=== PATIENT | male | born 1960 | race Caucasian/White ===

== ENCOUNTER 2020-04-18 23:56 | Emergency (ER) | payer MEDICARE, MEDICAID, OTHER, SELFPAY ==
[2020-04-19 00:30] VITALS: BP 125/89; PULSE 81; RESP 22; TEMP 36.7; O2SAT 98
--- NOTE | 2020-04-19 05:09 | PC.NURSE ---
original documentation done under yuki mike name. i undid and correctly charted
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
== END 2020-04-19 03:00 | disposition home or self-care (01) ==
PROVIDERS: Emergency Provider General Practice
DX: T74.21XA Adult sexual abuse, confirmed, initial encounter (principal); Z21 Asymptomatic human immunodeficiency virus [HIV] infection status; Y07.59 Other non-family member, perpetrator of maltreatment and neglect
CPT/HCPCS: 99285

== ENCOUNTER 2020-04-22 00:19 | Emergency (ER) | payer MEDICARE, MEDICAID, SELFPAY ==
--- NOTE | ~2020-04-22 | XR_ITS ---
XR chest 2V DATE: 04/22/2020 00:53 INDICATION: Chest pain and chest tightness TECHNIQUE: PA and lateral views COMPARISON: None FINDINGS: Status post sternotomy. Coronary artery stent. Left intrathoracic device. Normal heart size. No hilar or mediastinal enlargement. Reticular changes in the lung bases may be due to interstitial pneumonitis or fibrosis; otherwise no pulmonary infiltrate or consolidation, pleural effusion or pulmonary vascular congestion or pneumotho rax. Status post cholecystectomy. IMPRESSION: Status post sternotomy Coronary artery stent Reticular changes in the lung bases which may be due to interstitial pneumonitis or fibrosis Reviewed, dictated and finalized at location A. IMPRESSION: Status post sternotomy Coronary artery stent Reticular changes in the lung bases which may be due to interstitial pneumoniti s or fibrosis
[2020-04-22 00:16] VITALS: BP 124/87; PULSE 122; RESP 25; TEMP 36.7; O2SAT 94
--- NOTE | 2020-04-22 00:26 | ECG_ITS ---
Measurements Intervals [place] Rate: 118 P: 71 VA: 137 QRS: 32 QRSD: 100 T: 64 QT: 437 QTc: 613 Interpretive Statements SINUS TACHYCARDIA NONSPECIFIC ST & T-WAVE ABNORMALITY- LAT/HIGH LAT LEADS BASELINE ARTIFACT- II, III ABNORMAL ECG Electronically Signed On 04-22-2020 8:08:49 CDT by Cruzito Haile D.O.
[2020-04-22 00:40] VITALS: PULSE 118; O2SAT 95
[2020-04-22 00:55] LABS: Basophils Absolute Auto 0.1 K/mm3 (0.0-0.1); Basophils Percent Auto 0.6 % (0.2-1.2); Eosinophils Percent Auto 0.3 % (0-4.4); Hematocrit 37.4 % (42.0-52.0); Hemoglobin 13.2 g/dL (14.0-18.0); Immature Granulocyte Absolute 0.05 K/mm3 (0.00-0.031); Immature Granulocyte Percent A 0.5 % (0-0.5); Lymphocytes Absolute Auto 3.56 K/mm3 (0.9-3.2); Lymphocytes Percent Auto 37.5 % (18.3-44.2); Mean Corpuscular HGB Conc 35.3 g/dl (32-36); Mean Corpuscular Hemoglobin 32.1 pg (26-34); Mean Platelet Volume 9.6 fl (7.4-10.4); Monocytes Absolute Auto 0.9 K/mm3 (0.1-0.6); Monocytes Percent Auto 9.2 % (2.6-8.5); Neutrophils Absolute Auto 4.9 K/mm3 (1.3-6.7); Neutrophils Percent Auto 51.9 % (45.5-73.1); Platelet Count Result 230 k/mm3 (150-375); Red Blood Count 4.11 M/mm3 (4.6-6.20); Red Cell Distribution Width 11.9 % (11.5-14.5); White Blood Count 9.5 K/mm3 (4.5-10.0)
[2020-04-22 01:05] LABS: INR 1.1; Prothrombin Time 13.5 Seconds (11.1-14.7)
[2020-04-22 01:06] LABS: Partial Thromboplastin Time 26.2 SECONDS (22.3-36.8)
[2020-04-22 01:08] LABS: Anion Gap 12 mmol/L (8-16); Blood Urea Nitrogen 29 mg/dL (9-20); Calcium 9.2 mg/dL (8.4-10.2); Carbon Dioxide 23 mmol/L (22-30); Chloride 108 mmol/L (98-107); Estimated CRCL calculation 65 ml/min; Estimated Glomerular Filt Rate > 60; Glucose 191 mg/dL (75-110); Potassium 3.7 mmol/L (3.4-5.0); Sodium 143 mmol/L (137-145)
[2020-04-22 01:20] LABS: Troponin I 0.016 ng/mL (0.000-0.034)
[2020-04-22] MEDS: ASPIRIN 81 MG CHEWABLE TABLET 324 MG PO (01:26)
[2020-04-22 01:30] VITALS: BP 136/72; PULSE 116; RESP 21; O2SAT 96
[2020-04-22] MEDS: SODIUM CHLORIDE 0.9% IV 1,000 ML 999 ML IV CONT (01:30)
[2020-04-22 03:00] VITALS: BP 143/75; PULSE 110; RESP 25; O2SAT 99
--- NOTE | 2020-04-22 03:09 | ED.CHESTPAIN ---
HPI - Chest Pain General Chief Complaint: Chest Pain Stated Complaint: CP Time Seen by Provider: 04/22/20 00:56 History of Present Illness HPI narrative: Patient is a 59-year-old male who presents the ER with chest pain. Reports around 5:30 PM he was starting to libertarian with his friend. He had 6 jacking Cokes and then snorted 1.5 g of cocaine. He developed central chest pain shortly after. Lasted for about 1/2-hour. He still having some slight discomfort. Has history of MIs as well as a CABG in the past. No aggravating alleviating factors outside of the drug use. No GI symptoms. Related Data Home Medications Medication Instructions Recorded Confirmed allopurinol 04/19/20 carvedilol 04/19/20 imipramine HCl 04/19/20 Allergies Allergy/AdvReac Type Severity Reaction Status Date / Time Penicillins Allergy Anaphylactic Verified 04/19/20 03:38 Shock Review of Systems Review of Systems: All systems reviewed & are unremarkable except as noted in HPI and below Constitutional: Constitutional: Denies chills, Denies fever(s) and Denies weakness ENT: Denies nasal congestion and Denies sore throat Cardiovascular: Cardiovascular: Reports chest pain, Reports rapid heart rate and Denies radiating jaw, neck or arm pain Respiratory: Respiratory: Denies cough and Denies dyspnea Gastrointestinal: Gastrointestinal: Denies abdominal pain, Denies nausea and Denies vomiting Psychiatric: Psychiatric: Reports anxiety PMFSH Past Medical History Medical History (Updated 04/22/20 @ 04:04 by Wilber Mcgrath MD) Atrial fibrillation Coronary artery disease HIV (human immunodeficiency virus infection) Hyperlipidemia Hypertension Rectal cancer Surgical History Surgical History (Updated 04/22/20 @ 03:11 by Wilber Mcgrath MD) Hx of CABG Social History Social History (Updated 04/22/20 @ 03:11 by Wilber Mcgrath MD) Alcohol intake: current Substance use type: crack/cocaine Gender identity (if verbalized by the patient): Male Exam Narrative: Exam Narrative: GENERAL: Anxious-appearing, well-nourished, and in no acute distress. HEAD: Normocephalic, atraumatic. EYES: PERRLA and EOMI. CHEST: Clear to auscultation. No respiratory distress. HEART: Tachycardic and regular. Normal peripheral pulses. ABDOMEN: Soft, nontender, nondistended. EXTREMITIES: Normal range of motion. No edema. SKIN: Warm, dry, no rash. NEURO: Alert and oriented x3. PSYCH: Slightly anxious with difficulty sitting still likely related to cocaine use. Normal thought process. Course Course Emergency Course: Troponins flat 1 hours after onset of pain. Patient is coming down off cocaine is no longer jittery. Calm and cooperative. CP free. D/c. Vital Signs Vital signs: Vital Signs Temperature 98.1 F 04/22/20 00:16 Pulse Rate 122 H 04/22/20 00:16 Respiratory Rate 25 H 04/22/20 00:16 Blood Pressure 124/87 04/22/20 00:16 Pulse Oximetry 94 04/22/20 00:16 Temperature 98.1 F 04/22/20 00:16 Pulse Rate 110 H 04/22/20 03:00 Respiratory Rate 25 H 04/22/20 03:00 Blood Pressure 143/75 H 04/22/20 03:00 Pulse Oximetry 99 04/22/20 03:00 MDM - Chest Pain Lab Data Result diagrams: 04/22/20 00:49 04/22/20 00:49 Labs: Lab Results 04/22/20 04/22/20 04/22/20 Range/Units 00:49 00:49 00:49 WBC 9.5 (4.5-10.0) K/mm3 RBC 4.11 L (4.6-6.20) M/mm3 Hgb 13.2 L (14.0-18.0) g/dL Hct 37.4 L (42.0-52.0) % MCV 91.0 (80-100) fl MCH 32.1 (26-34) pg MCHC 35.3 (32-36) g/dl RDW 11.9 (11.5-14.5) % Plt Count 230 (150-375) k/mm3 MPV 9.6 (7.4-10.4) fl Immature Gran % (Auto) 0.5 (0-0.5) % Neut % (Auto) 51.9 (45.5-73.1) % Lymph % (Auto) 37.5 (18.3-44.2) % Love % (Auto) 9.2 H (2.6-8.5) % Eos % (Auto) 0.3 (0-4.4) % Baso % (Auto) 0.6 (0.2-1.2) % Lymph # (Auto) 3.56 H (0.9-3.2) K/mm3 Love # (Auto) 0.9 H (0.1
[2020-04-22 03:52] LABS: Troponin I 0.017 ng/mL (0.000-0.034)
--- NOTE | 2020-04-22 04:17 | PC.NURSE ---
Per EDP Alcides, patient can be discharged at 0600 due to patient sobering up and coming down from cocaine use.
[2020-04-22 04:47] VITALS: BP 129/67; PULSE 108; RESP 16; O2SAT 99
[2020-04-22 05:44] VITALS: BP 135/75; PULSE 107; RESP 16; TEMP 36.6; O2SAT 100
== END 2020-04-22 05:46 | disposition home or self-care (01) ==
PROVIDERS: Emergency Provider Emergency Medicine
DX: R07.9 Chest pain, unspecified (principal); F14.10 Cocaine abuse, uncomplicated; I48.91 Unspecified atrial fibrillation; I25.10 Atherosclerotic heart disease of native coronary artery without angina pectoris; Z21 Asymptomatic human immunodeficiency virus [HIV] infection status; E78.5 Hyperlipidemia, unspecified; I10 Essential (primary) hypertension; I25.2 Old myocardial infarction
CPT/HCPCS: 36415; 71046; 80048; 84484; 85025; 85610; 85730; 93005; 96360; 99284; A9270; J7030

== ENCOUNTER 2020-04-23 02:34 | Emergency (ER) | payer MEDICARE, MEDICAID, SELFPAY ==
--- NOTE | ~2020-04-23 | XR_ITS ---
XR chest 2V DATE: 04/23/2020 03:11 INDICATION: Chest pain, chest tightness TECHNIQUE: AP and lateral views COMPARISON: 04/22/2028 PA and lateral chest FINDINGS: Status post sternotomy. Coronary artery stent. Left intrathoracic device is again noted. Heart size is within normal range. No pulmonary vascular congestion. No pleural effusion is evident. Reticular changes are suggested at the lung bases which may be due to minimal interstitial infiltrate , atelectasis or fibrotic change. IMPRESSION: No significant change since 04/22/2020 Reviewed, dictated and finalized at location A.
[2020-04-23 02:34] VITALS: PULSE 109; RESP 14; TEMP 36.7; O2SAT 95
--- NOTE | 2020-04-23 02:37 | ECG_ITS ---
Measurements Intervals [place] Rate: 104 P: 78 [place]: 120 QRS: 55 QRSD: 91 T: 78 QT: 345 QTc: 456 Interpretive Statements SINUS TACHYCARDIA CANNOT RULE OUT SEPTAL INFARCT, AGE INDETERMINATE BORDERLINE T WAVE ABNORMALITY- HIGH LATERAL LEADS ABNORMAL ECG Electronically Signed On 04-23-2020 6:51:35 CDT by Cruzito Haile D.O.
[2020-04-23 02:50] LABS: Basophils Absolute Auto 0.1 K/mm3 (0.0-0.1); Basophils Percent Auto 0.6 % (0.2-1.2); Eosinophils Absolute Auto 0.1 K/mm3 (0-0.3); Eosinophils Percent Auto 1.6 % (0-4.4); Hemoglobin 12.2 g/dL (14.0-18.0); Immature Granulocyte Absolute 0.04 K/mm3 (0.00-0.031); Immature Granulocyte Percent A 0.5 % (0-0.5); Lymphocytes Absolute Auto 2.99 K/mm3 (0.9-3.2); Lymphocytes Percent Auto 36.5 % (18.3-44.2); Mean Corpuscular HGB Conc 34.9 g/dl (32-36); Mean Corpuscular Hemoglobin 32.4 pg (26-34); Mean Corpuscular Volume 92.8 fl (80-100); Mean Platelet Volume 9.1 fl (7.4-10.4); Monocytes Absolute Auto 0.7 K/mm3 (0.1-0.6); Monocytes Percent Auto 8.3 % (2.6-8.5); Neutrophils Absolute Auto 4.3 K/mm3 (1.3-6.7); Neutrophils Percent Auto 52.5 % (45.5-73.1); Platelet Count Result 210 k/mm3 (150-375); Red Blood Count 3.77 M/mm3 (4.6-6.20); Red Cell Distribution Width 12.4 % (11.5-14.5); White Blood Count 8.2 K/mm3 (4.5-10.0)
[2020-04-23 02:57] VITALS: PULSE 101
[2020-04-23 02:59] LABS: Prothrombin Time 12.6 Seconds (11.1-14.7)
[2020-04-23 03:00] LABS: Partial Thromboplastin Time 26.5 SECONDS (22.3-36.8)
[2020-04-23 03:04] LABS: Anion Gap 8 mmol/L (8-16); Blood Urea Nitrogen 18 mg/dL (9-20); Carbon Dioxide 28 mmol/L (22-30); Chloride 105 mmol/L (98-107); Estimated CRCL calculation 76 ml/min; Estimated Glomerular Filt Rate > 60; Glucose 244 mg/dL (75-110); Potassium 3.6 mmol/L (3.4-5.0); Sodium 141 mmol/L (137-145)
[2020-04-23 03:16] LABS: Troponin I < 0.012 ng/mL (0.000-0.034)
--- NOTE | 2020-04-23 04:10 | ED.CHESTPAIN ---
HPI - Chest Pain General Chief Complaint: Chest Pain Stated Complaint: CP Time Seen by Provider: 04/23/20 02:35 History of Present Illness HPI narrative: Patient is a 59-year-old male who presents the ER with complaint of inability to sleep. Patient was seen in the ER last night for chest pain after drinking alcohol and using cocaine. Patient reports after leaving the ER he met up with a friend and went to a local hotel. There they used meth for several hours. They injected it as well as snorted it. Reports this afternoon he started having some discomfort in his left posterior shoulder and posterior neck. Did not think much of it. Then tonight while he was in the lobby of his hotel the medical appointment clerk there he said she did not think he looked well and called EMS and he was transferred here. Reports he has been a unable to sleep would like help with this. No complaints of chest pain or shortness of breath. Reports he has mild ache in his left posterior shoulder. Has not tried any additional medications. Related Data Home Medications Medication Instructions Recorded Confirmed allopurinol 04/19/20 carvedilol 04/19/20 imipramine HCl 04/19/20 Allergies Allergy/AdvReac Type Severity Reaction Status Date / Time Penicillins Allergy Anaphylactic Verified 04/19/20 03:38 Shock Review of Systems Review of Systems: All systems reviewed & are unremarkable except as noted in HPI and below Constitutional: Constitutional: Denies chills, Denies fever(s) and Denies weakness ENT: Denies nasal congestion and Denies sore throat Cardiovascular: Cardiovascular: Denies chest pain and Denies radiating jaw, neck or arm pain Respiratory: Respiratory: Denies cough, Denies dyspnea and Denies wheezing Gastrointestinal: Gastrointestinal: Denies abdominal pain, Denies nausea and Denies vomiting Musculoskeletal: Musculoskeletal: Denies arthralgias and Denies muscle cramps Comments: Left shoulder pain posteriorly Neurologic: Denies dizziness, Denies focal weakness and Denies numbness PMFSH Past Medical History Medical History (Updated 04/23/20 @ 04:53 by Wilber Mcgrath MD) Atrial fibrillation Coronary artery disease HIV (human immunodeficiency virus infection) Hyperlipidemia Hypertension Rectal cancer Surgical History Surgical History (Updated 04/22/20 @ 03:11 by Wilber Mcgrath MD) Hx of CABG Social History Social History (Updated 04/22/20 @ 03:11 by Wilber Mcgrath MD) Alcohol intake: current Substance use type: crack/cocaine Gender identity (if verbalized by the patient): Male Exam Narrative: Exam Narrative: GENERAL: Well-appearing, well-nourished, and in no acute distress. HEAD: Normocephalic, atraumatic. ENT: Mucous membranes moist. CHEST: Clear to auscultation. No respiratory distress. HEART: Tachycardic regular. Normal peripheral pulses. ABDOMEN: Soft, nontender, nondistended. EXTREMITIES: Normal range of motion. No edema. SKIN: Warm, dry, no rash. NEURO: Alert and oriented x3. Course Course Emergency Course: Unremarkable evaluation. Patient decided he wanted to leave AGAINST MEDICAL ADVICE prior to this physician making down to give him his results. He was educated that he is risking and permanent disability. Vital Signs Vital signs: Vital Signs Temperature 98.0 F 04/23/20 02:34 Pulse Rate 109 H 04/23/20 02:34 Respiratory Rate 14 04/23/20 02:34 Pulse Oximetry 95 04/23/20 02:34 Temperature 98.0 F 04/23/20 02:34 Pulse Rate 98 04/23/20 04:29 Respiratory Rate 14 04/23/20 04:29 Blood Pressure 136/84 04/23/20 04:29 Pulse Oximetry 99 04/23/20 04:29 MDM - Chest Pain Lab Data Result diagrams: 04/23/20 02:40 04/23/20 02:40 Labs: Lab Results 04/23/20 04/23/20 04/23/20 Range/Units 02:40 02:40 02:40 WBC 8.2 (4.5-10.0) K/mm3 RBC 3.77 L (4.6-6.20) M/mm3 Hgb 12.2 L (14.0-18.0) g/dL Hct 35.0 L
[2020-04-23 04:29] VITALS: BP 136/84; PULSE 98; RESP 14; O2SAT 99
--- NOTE | 2020-04-23 04:54 | PC.NURSE ---
Patient requesting to leave ARussell Mcgrath notified.
== END 2020-04-23 04:57 | disposition left against medical advice (07) ==
PROVIDERS: Emergency Provider Emergency Medicine
DX: F15.10 Other stimulant abuse, uncomplicated (principal); I48.91 Unspecified atrial fibrillation; I25.10 Atherosclerotic heart disease of native coronary artery without angina pectoris; E78.5 Hyperlipidemia, unspecified; I10 Essential (primary) hypertension; Z21 Asymptomatic human immunodeficiency virus [HIV] infection status; Z85.048 Personal history of other malignant neoplasm of rectum, rectosigmoid junction, and anus
CPT/HCPCS: 36415; 71046; 80048; 84484; 85025; 85610; 85730; 93005; 99284

== ENCOUNTER 2020-04-24 10:08 | Inpatient (IN) | payer MEDICARE, MEDICAID, SELFPAY ==
[2020-04-24] VITALS (17 sets, daily range): BP systolic 114–146; BP diastolic 70–84; PULSE 81–104; RESP 12–18; TEMP 36.7–36.8; O2SAT 95–100; BMI 23.1
--- NOTE | ~2020-04-24 | US_ITS ---
EXAMINATION: US carotid duplex BI DATE: 04/25/2020 12:58 INDICATION: Syncope TECHNIQUE: Grayscale, color Doppler, and pulsed Doppler images of the cervical carotid arteries were obtained. The degree of vessel stenosis is placed in one of the following categories: normal, <50%, 5 0-69%, >=70% but less than near-occlusion, near-occlusion, or total occlusion. Note that percent sten osis relative to normal distal artery lumen diameter is indirectly measured from velocity measurement s as described by Chai, et al. Radiology 2003; 229:[id number]. COMPARISON: None. FINDINGS: RIGHT: The right common carotid artery (CCA) peak systolic velocity (PSV) is 95 cm/s. The right internal car otid artery (ICA) PSV is 74 cm/s. The right ICA end-diastolic velocity (EDV) is 27 cm/s. The right IC A/CCA PSV ratio is 0.8. Grayscale and color Doppler images yield an estimate of <50% diameter reducti on from plaque in the ICA. The external carotid artery (ECA) PSV is 102 cm/s. There is antegrade flow in the right vertebral artery. LEFT: The left CCA PSV is 104 cm/s. The left ICA PSV is 91 cm/s. The left ICA EDV is 23 cm/s. The left ICA/ CCA PSV ratio is 0.9. Grayscale and color Doppler images yield an estimate of <50% diameter reduction from plaque in the ICA. The ECA PSV is 86 cm/s. There is antegrade flow in the left vertebral artery . IMPRESSION: 1. <50% stenosis in the right internal carotid artery. 2. <50% stenosis in the left internal carotid artery. Reviewed, dictated and finalized at location A.
--- NOTE | ~2020-04-24 | CT_ITS ---
EXAMINATION: CTA chest PE protocol DATE: 04/24/2020 13:18 INDICATION: Shortness of breath. Syncope. TECHNIQUE: Computed tomography angiography (CTA) of the chest was performed with 100 mL Omnipaque-350 intravenous contrast timed to evaluate the pulmonary arteries. Coronal maximum intensity projection 3D-reconstructions were created by the technologist. Automated exposure control and iterative reconst ruction technique were employed. Exam dose: 367.97 mGy-cm total exam DLP. COMPARISON: 04/23/2020 chest 2 views. FINDINGS: There is diagnostic contrast enhancement of the pulmonary arteries and no evidence of pulmo nary embolism. No thoracic aortic aneurysm or dissection. Coronary artery stent. Status post sternotomy. Normal heart size. No pericardial or pleural effusion. No hilar or mediastinal mass lesion or lymphadenopathy. Nonenlarged superior mediastinal and prevascu lar lymph nodes measuring up to 8 mm cross-section diameter, likely reactive. There are prominent interstitial markings predominating in the peripheries of the lungs in a pattern consistent with usual interstitial pneumonitis. No pulmonary consolidation is evident. No pneumothorax. A pleural-based approximate 5 x 15 mm opacity is noted in the posterolateral right upper lung field; follow-up CT imaging in 6 months is recommended.. Status post cholecystectomy. Normal morphology of the adrenal glands. IMPRESSION: No evidence of pulmonary aneurysm Usual interstitial pneumonitis 5 x 15 mm pleura-based right upper lobe opacity; six-month CT follow-up is recommended. Reviewed, dictated and finalized at Location [facility]. Reviewed, dictated and finalized at location A. IMPRESSION: No evidence of pulmonary aneurysm Usual interstitial pneumonitis 5 x 15 mm pleura-based right upper lobe opacity; six-month CT follow-up is lewis mmended.
--- NOTE | ~2020-04-24 | CT_ITS ---
EXAMINATION: CT brain wo con EXAM DATE: 04/24/2020 10:44 INDICATION: Syncope, headache. Dizziness. TECHNIQUE: Spiral CT of the head was performed without contrast. Axial, coronal and sagittal images were reviewed. The dose-length product (DLP) for this examination was 605.33 mGy-cm. The exposure w as tailored according to patient size, and iterative reconstruction (ASIR) was used as additional dos e reduction technique. There is no prior study for comparison. FINDINGS: There is no acute intraparenchymal hemorrhage. No evidence of intraparenchymal brain mass lesion. No evidence of acute infarction. Please note that initial head CT has limited sensitivity f or small or acute infarctions. There is mild periventricular and subcortical hypodensity, nonspecific but probably related to small vessel ischemic disease. There is mild prominence of the sulci and v entricles related to cerebral atrophy. There is intracranial carotid arteriosclerosis. There are n o extra-axial collections. There is no mass effect or midline shift. The orbits are unremarkable. Soft tissue is unremarkable. Moderate to severe right maxillary, moderate bilateral ethmoid mucoperi osteal thickening. IMPRESSION: 1. No acute intracranial findings. 2. Chronic age related findings. 3. Sinus mucoperiosteal thickening. Reviewed, dictated and finalized at location B.
--- NOTE | ~2020-04-24 | XR_ITS ---
XR chest 1V portable DATE: 04/24/2020 10:36 INDICATION: Syncope, dizziness. Patient fell today. TECHNIQUE: Portable upright AP chest on 05/04/2020 at 1032 hours COMPARISON: 04/23/2020 AP and lateral chest 04/22/2022 view chest FINDINGS: Status post sternotomy. Heart size is within normal range. Increased interstitial markings particularly lower lung zones, which may be chronic; interstitial pneumonitis or edema is not exclude d. No pulmonary consolidation. No pulmonary vascular congestion or pleural effusion. IMPRESSION: Postoperative chest Likely chronic accentuated lung markings; interstitial pneumonitis or edema are not excluded. Clinica l correlation is advised. Reviewed, dictated and finalized at location A. IMPRESSION: Postoperative chest Likely chronic accentuated lung markings; interstitial pneumonitis or edema are not excluded. Clinical correlation is advised.
--- NOTE | 2020-04-24 10:25 | ECG_ITS ---
Measurements Intervals [place] Rate: 97 P: 71 [place]: 150 QRS: 13 QRSD: 81 T: 83 QT: 368 QTc: 470 Interpretive Statements SINUS RHYTHM VENTRICULAR PREMATURE COMPLEX NONSPECIFIC T-WAVE ABNORMALITY- HIGH LATERAL LEADS BASELINE WANDER- I, II, III BORDERLINE ECG Electronically Signed On 04-24-2020 11:11:58 CDT by Cruzito Haile D.O.
--- NOTE | 2020-04-24 10:27 | ED.SYNCOPE ---
HPI - Syncope General Chief Complaint: Syncope Stated Complaint: syncopal Time Seen by Provider: 04/24/20 10:10 Related Data Home Medications Medication Instructions Recorded Confirmed allopurinol 04/19/20 carvedilol 04/19/20 imipramine HCl 04/19/20 Allergies Allergy/AdvReac Type Severity Reaction Status Date / Time Penicillins Allergy Anaphylactic Verified 04/19/20 03:38 Shock Review of Systems Review of Systems: All systems reviewed & are unremarkable except as noted in HPI and below PMFSH Past Medical History Medical History (Updated 04/24/20 @ 00:00 by Background Montez) Atrial fibrillation Coronary artery disease HIV (human immunodeficiency virus infection) Hyperlipidemia Hypertension Rectal cancer Surgical History Surgical History (Updated 04/22/20 @ 03:11 by Wilber Mcgrath MD) Hx of CABG Social History Social History (Updated 04/22/20 @ 03:11 by Wilber Mcgrath MD) Alcohol intake: current Substance use type: crack/cocaine Gender identity (if verbalized by the patient): Male Course Vital Signs Vital signs: Vital Signs Temperature 98.1 F 04/24/20 10:04 Respiratory Rate 16 04/24/20 10:04 Blood Pressure 136/83 04/24/20 10:04 Pulse Oximetry 100 04/24/20 10:04 Temperature 98.1 F 04/24/20 10:04 Respiratory Rate 16 04/24/20 10:04 Blood Pressure 136/83 04/24/20 10:04 Pulse Oximetry 100 04/24/20 10:04 Discharge Plan Discharge Prescriptions: No Action imipramine HCl 50 mg tablet RF: 0 carvedilol 12.5 mg tablet RF: 0 allopurinol 100 mg tablet RF: 0 Stand Alone Forms: Work/School Release IP
--- NOTE | 2020-04-24 10:28 | ED.SYNCOPE ---
HPI - Syncope General Chief Complaint: Syncope Stated Complaint: syncopal Time Seen by Provider: 04/24/20 10:10 Source: patient Mode of arrival: EMS Limitations: no limitations History of Present Illness HPI narrative: This patient is a 59 year old male with history of HIV and diabetes mellitus who presents for evaluation of a syncopal episode. He states that he stood up and started walking , and he developed dizziness. He states he could tell that he was falling backwards. He states he did not hit his head, but he has loss of consciousness and a headache. He reports he has been been eating much over the past few days due to drug use this week end. He states he has not eaten today and he only ate a cheese stick yesterday. He was using IV cocaine over the weekend. He was evaluated in [place] ED 2 days ago for chest pain and he left AMA. He denies chest pain, fever, chills, sob, nausea, vomiting or fever. Related Data Home Medications Medication Instructions Recorded Confirmed allopurinol 04/19/20 carvedilol 04/19/20 imipramine HCl 04/19/20 insulin detemir U-100 [Levemir unit SUBCUT 04/24/20 FlexTouch U-100 Insuln] Allergies Allergy/AdvReac Type Severity Reaction Status Date / Time Penicillins Allergy Anaphylactic Verified 04/24/20 11:08 Shock Review of Systems Review of Systems: All systems reviewed & are unremarkable except as noted in HPI and below Cardiovascular: Cardiovascular: Reports chest pain (2 days ago) Respiratory: Respiratory: Reports cough and Denies dyspnea Gastrointestinal: Gastrointestinal: Denies abdominal pain, Denies nausea and Denies vomiting Neurologic: Reports headache(s) and Denies focal weakness PMFSH Past Medical History Medical History (Updated 04/24/20 @ 18:47 by Dede Espana MD) Atrial fibrillation Coronary artery disease HIV (human immunodeficiency virus infection) Hyperlipidemia Hypertension Rectal cancer Surgical History Surgical History (Updated 04/22/20 @ 03:11 by Wilber Mcgrath MD) Hx of CABG Social History Social History (Updated 04/22/20 @ 03:11 by Wilber Mcgrath MD) Alcohol intake: current Substance use type: crack/cocaine Gender identity (if verbalized by the patient): Male Exam Const: General: alert Orientation/consciousness: patient oriented x3 HENMT: Head: normocephalic and atraumatic Face and sinus: face symmetric Mouth: Yes Normal oral and palatal mucosa present, Yes oropharynx normal and Yes moist mucous membranes Throat: posterior oropharynx normal Eyes: EOM: EOMs intact bilaterally Chest: Chest palpation & inspection: normal inspection of the chest Resp: Effort & Inspection: normal respiratory effort, no retractions and no use of accessory muscles Auscultation: clear to auscultation bilaterally Cardio: Rate: regular rate Rhythm: regular rhythm Heart sounds: no murmurs GI: GI Palp: Yes Soft to palpation and No Tenderness to palpation present (GI) Auscultation: normal bowel sounds Skin: General skin exam: normal color Neuro: General: patient oriented x3 and moves all extremities Extrem: General: normal to inspection Course Consultations Consultation #1: I discussed case with Barbara yost aleida with syncope. He also has cardiac history of with complaint of inermittent chest pain. Will obs for chest pain Date: 04/24/20 Time: 14:14 Vital Signs Vital signs: Vital Signs Temperature 98.1 F 04/24/20 10:04 Pulse Rate 104 H 04/24/20 10:04 Respiratory Rate 16 04/24/20 10:04 Blood Pressure 136/83 04/24/20 10:04 Pulse Oximetry 100 04/24/20 10:04 Temperature 98.1 F 04/24/20 10:04 Pulse Rate 90 04/24/20 18:00 Respiratory Rate 16 04/24/20 18:00 Blood Pressure 135/70 04/24/20 18:00 Pulse Oximetry 97 04/24/20 18:00 MDM - Syncope Lab Data Attestation: I reviewed the patient's lab results. Result diagrams: 04/24/20 11:02
[2020-04-24] MEDS: SODIUM CHLORIDE 0.9% IV 1,000 ML 999 ML IV CONT ×2 (10:59→14:50)
[2020-04-24 11:10] LABS: Basophils Percent Auto 0.4 % (0.2-1.2); Eosinophils Absolute Auto 0.1 K/mm3 (0-0.3); Eosinophils Percent Auto 1.5 % (0-4.4); Hematocrit 39.9 % (42.0-52.0); Hemoglobin 13.9 g/dL (14.0-18.0); Immature Granulocyte Absolute 0.06 K/mm3 (0.00-0.031); Immature Granulocyte Percent A 0.6 % (0-0.5); Lymphocytes Absolute Auto 2.22 K/mm3 (0.9-3.2); Lymphocytes Percent Auto 23.1 % (18.3-44.2); Mean Corpuscular HGB Conc 34.8 g/dl (32-36); Mean Corpuscular Hemoglobin 32.3 pg (26-34); Mean Corpuscular Volume 92.6 fl (80-100); Mean Platelet Volume 9.5 fl (7.4-10.4); Monocytes Absolute Auto 0.8 K/mm3 (0.1-0.6); Monocytes Percent Auto 8.2 % (2.6-8.5); Neutrophils Absolute Auto 6.4 K/mm3 (1.3-6.7); Neutrophils Percent Auto 66.2 % (45.5-73.1); Platelet Count Result 228 k/mm3 (150-375); Red Blood Count 4.31 M/mm3 (4.6-6.20); Red Cell Distribution Width 12.3 % (11.5-14.5); White Blood Count 9.6 K/mm3 (4.5-10.0)
[2020-04-24 11:25] LABS: Alanine Aminotransferase 146 U/L (4-50); Alkaline Phosphatase 112 U/L (38-126); Anion Gap 10 mmol/L (8-16); Aspartate Amino Transferase 91 U/L (17-59); Bilirubin,Total 4.8 mg/dL (0.2-1.3); Blood Urea Nitrogen 13 mg/dL (9-20); Carbon Dioxide 27 mmol/L (22-30); Chloride 104 mmol/L (98-107); Estimated CRCL calculation 97 ml/min; Estimated Glomerular Filt Rate > 60; Glucose 248 mg/dL (75-110); INR 1.1; Potassium 3.4 mmol/L (3.4-5.0); Prothrombin Time 13.6 Seconds (11.1-14.7); Sodium 141 mmol/L (137-145)
[2020-04-24 11:26] LABS: Magnesium 1.6 mg/dL (1.6-2.3); Partial Thromboplastin Time 26.7 SECONDS (22.3-36.8)
[2020-04-24 11:29] LABS: D Dimer 0.76 ug/mL (<0.48)
[2020-04-24 11:36] LABS: Troponin I 0.013 ng/mL (0.000-0.034)
[2020-04-24 11:38] LABS: NT Pro B Type Natriuretic Pept 520 PG/ML (5-100)
[2020-04-24 12:15] LABS: Add Urine Microscopic? YES; Appearance Urine Clear (Clear); Bacteria Urine Trace /hpf; Bilirubin Urine Negative (Negative); Blood Urine Negative (Negative); Color Urine Amber (Yellow); Glucose Urine UA 3+ mg/dL (Negative); Ketones Urine Trace mg/dL (Negative); Leukocyte Esterase Ur Negative LEU/UL (Negative); Mucus Urine Rare /lpf; Nitrate Urine Negative (Negative); Protein Urine Negative (Negative); RBC Urine 0-2 /hpf (0-2); Specific Grav Ur 1.024 (1.001-1.035); WBC Urine 0-3 /hpf
[2020-04-24 12:30] LABS: Barbiturate Screen Urine Negative (Negative); Benzodiazepines Screen Urine Negative (Negative)
[2020-04-24 12:48] LABS: Cannabinoid Screen Urine Negative (Negative); Cocaine Screen Urine Negative (Negative); Methadone Screen Urine Negative (Negative); Opiate Screen Urine Negative (Negative)
[2020-04-24 13:14] LABS: Phencyclidine Screen Urine Negative (Negative)
[2020-04-24] MEDS: ASPIRIN 81 MG CHEWABLE TABLET 324 MG PO (14:50)
[2020-04-24 14:59] LABS: Troponin I < 0.012 ng/mL (0.000-0.034)
[2020-04-24 17:43] LABS: Troponin I < 0.012 ng/mL (0.000-0.034)
--- NOTE | 2020-04-24 17:43 | PC.NURSE ---
ordered pt tray @ 17:43
--- NOTE | 2020-04-24 19:00 | ADMGEN ---
This patient, Gaston Ulloa, was admitted to IMU Room 203-01 at 1900. Patient/family oriented to hospital policies and general routines including ID bracelet, bed and alarms, visiting hours, pain management, procedures, bathroom and other care routines, personal items, smoking policy, room service/diet, and visiting hours. Valuables list has been completed. Information on how to activate the Rapid Response Team has been discussed. Patient/Family are encouraged to report perceived risks to care and to ask questions if they do not understand what they are told or what they should do.
--- NOTE | 2020-04-24 20:47 | PM.IMHP ---
H&P: HPI History of Present Illness Date/Time: 04/24/20 20:47 Chief complaint: syncope, chest pain Narrative: This is a 59 year old Diabetic male with known HIV+, CAD+ s/p CABG x 3, HTN, and rectal cancer who presented to the hospital with a complaint of suffering a syncopal episode. The patient was just seen in the ER a few days ago for chest pain and apparently signed out against medical advice at that time. Today he was at a hotel and became dizzy after he stood up and began to walk. Apparently he started to sit down when he felt like he was going to pass out and remembers passing out as he sat down. He does not know how long he was unconscious for and does not believe that he had any head injury although he woke up with a headache. He admits that he hasn't been eating any food over the past five days and he last used drugs over the weekend. He admitted to using methamphetamine to me but actually admitted to using cocaine to the ER provider? He also reports that he has had intermittent chest pain over the past two days which has lasted over an hour in duration when he gets it. Currently he is only complaining of a sore throat and denies any fevers, chills, nausea, vomiting, abdominal pain, chest pain, dysuria, hematuria. diarrhea, rectal bleeding, or focal neurological symptoms. The patient was evaluated in the ER today and routine labs have been virtually unremarkable. Troponin has been negative x 2. EKG demonstrated a sinus rhythm w/ no ST segment changes. The patient has been admitted for further care. The patient reports that he has a right shoulder abscess for the past month. Review of Systems Review of Systems: All systems reviewed & are unremarkable except as noted in HPI and below PMFSH Past Medical History Medical History Atrial fibrillation Coronary artery disease Diabetes mellitus HIV (human immunodeficiency virus infection) Hyperlipidemia Hypertension Rectal cancer Surgical History Surgical History History of cholecystectomy Hx of CABG Family History Family History Other Unknown family medical history Social History Social History Smoking packs per day: 0.2 Smoking cigarettes per day: 4.0 Smoking status: Current some day smoker Tobacco type: cigarettes Alcohol intake: never Substance use: current Substance use type: methamphetamine Other substance usage details: last use 04/22 Gender identity (if verbalized by the patient): Male Spiritual care concerns: No Meds Home Medications and Allergies Home Medications Medication Instructions Recorded Confirmed Type allopurinol 100 mg PO DAILY 04/19/20 04/24/20 History carvedilol 6.25 mg PO DAILY 04/19/20 04/24/20 History imipramine HCl 50 mg PO HS 04/19/20 04/24/20 History rbxealy-bfs-hyyfi-tenof alafen 1 tablet PO DAILY 04/24/20 04/24/20 History [[facility]] insulin detemir U-100 [Levemir 25 unit SUBCUT BID 04/24/20 04/24/20 History FlexTouch U-100 Insuln] Allergies Allergy/AdvReac Type Severity Reaction Status Date / Time Penicillins Allergy Anaphylactic Verified 04/24/20 11:08 Shock Vital Signs Vital Signs - 24 hr 04/24/20 10:04 04/24/20 10:05 04/24/20 11:10 Temperature 36.7 C Pulse Rate 104 H 102 H 90 Respiratory Rate 16 Blood Pressure 136/83 126/75 Pulse Oximetry 100 04/24/20 11:13 04/24/20 11:14 04/24/20 11:30 Temperature Pulse Rate 96 95 85 Respiratory Rate 16 Blood Pressure 128/84 114/71 134/75 Pulse Oximetry 95 04/24/20 12:30 04/24/20 13:00 04/24/20 15:22 Temperature Pulse Rate 86 92 82 Respiratory Rate 18 16 16 Blood Pressure 137/73 131/81 138/73 Pulse Oximetry 95 95 95 04/24/20 16:00 04/24/20 16:30 04/24/20 17:30 Temperature Pulse Rate 8
[2020-04-24] MEDS: INSULIN DETEMIR 100 UNITS/ML 25 UNITS SUB-Q (23:45)
[2020-04-24 23:50] LABS: Glucose Point of Care 249 (65-105)
[2020-04-25] VITALS (7 sets, daily range): BP systolic 117–144; BP diastolic 56–71; PULSE 82–94; RESP 16–20; TEMP 36.1–36.6; O2SAT 94–99
--- NOTE | 2020-04-25 | ECHO_ITS ---
Patient Info Name: Gaston Ulloa Age: 59 years : 1960 Gender: Male Ht: 73 in Wt: 175 lbs BSA: 2.02 m2 HR: 89 bpm BP: 134 / 56 mmHg Technical Quality: Good Exam Date: 04/25/2020 10:11 AM Exam Location: [facility] Patient Status: Inpatient Admit Date: 04/25/2020 Staff Ordering Physician: Naveen Mac MD Manager Switch: Iraj Mills, DONELL, RT Attending Provider: Jeol Hays MD Referring Physician: Estefania LANDIS; Exam Type: CA echo doppler color flow Study Info Indications I49.8 - Other specified cardiac arrhythmias Complete two-dimensional, color flow and Doppler transthoracic echocardiogram is performed. Summary 1. Complete two-dimensional, color flow and Doppler transthoracic echocardiogram is performed. 2. Left ventricular chamber dimension is normal. 3. Left ventricular systolic function is normal, estimated at 60-65%. 4. There is mildly increased left ventricular wall thickness. 5. The left ventricular diastolic function is abnormal. 6. E/e' 13 is mildly elevated. 7. Global longitudinal strain is abnormal at -8.4%. 8. Left atrial chamber dimension is mildly enlarged. 9. There is mild aortic valve sclerosis. 10. The mitral valve has mildly calcified annulus. 11. There is trace mitral valve regurgitation. 12. There is mild tricuspid valve regurgitation. 13. There is trace pulmonic regurgitation. Left Ventricle E/e' 13 is mildly elevated. Global longitudinal strain is abnormal at -8.4%. Left ventricular chamber dimension is normal. Left ventricular systolic function is normal, estimated at 60-65%. There is mildly increased left ventricular wall thickness. The left ventricular diastolic function is abnormal. Right Ventricle Right ventricular chamber dimension is normal. Right ventricular systolic function is normal. Left Atria Left atrial chamber dimension is mildly enlarged. Right Atria Right atrial chamber dimension is normal. Aortic Valve The aortic valve is trileaflet. There is mild aortic valve sclerosis. There is no aortic valve stenosis. There is no aortic valve regurgitation. Pulmonic Valve There is trace pulmonic regurgitation. Mitral Valve The mitral valve has mildly calcified annulus. There is no mitral valve stenosis. There is trace mitral valve regurgitation. Tricuspid Valve There is mild tricuspid valve regurgitation. RVSP is not calculated due to an inadequate TR jet. Pericardium/Pleural There is no pericardial effusion. Inferior Vena Cava Normal inferior vena cava with >50% collapse upon inspiration consistent with normal right atrial pressure, 5 mmHg. Aorta The aortic root size at the sinus of Valsalva is normal. Left Ventricular Outflow Tract Name Value Normal LVOT 2D LVOT Diameter 2.1 cm LVOT Doppler LVOT Peak Gradient 5 mmHg LVOT Mean Gradient 2 mmHg LVOT VTI 20 cm LVOT VTI/AV VTI Ratio 0.7 LVOT Stroke Volume 71 ml LVOT CO 6.0
[2020-04-25 05:39] LABS: Basophils Percent Auto 0.2 % (0.2-1.2); Eosinophils Absolute Auto 0.2 K/mm3 (0-0.3); Eosinophils Percent Auto 1.9 % (0-4.4); Hematocrit 33.1 % (42.0-52.0); Hemoglobin 11.5 g/dL (14.0-18.0); Immature Granulocyte Absolute 0.06 K/mm3 (0.00-0.031); Immature Granulocyte Percent A 0.7 % (0-0.5); Lymphocytes Absolute Auto 2.39 K/mm3 (0.9-3.2); Lymphocytes Percent Auto 27.7 % (18.3-44.2); Mean Corpuscular HGB Conc 34.7 g/dl (32-36); Mean Corpuscular Hemoglobin 31.6 pg (26-34); Mean Corpuscular Volume 90.9 fl (80-100); Mean Platelet Volume 9.4 fl (7.4-10.4); Monocytes Absolute Auto 0.7 K/mm3 (0.1-0.6); Monocytes Percent Auto 8.3 % (2.6-8.5); Neutrophils Absolute Auto 5.3 K/mm3 (1.3-6.7); Neutrophils Percent Auto 61.2 % (45.5-73.1); Platelet Count Result 241 k/mm3 (150-375); Red Blood Count 3.64 M/mm3 (4.6-6.20); White Blood Count 8.6 K/mm3 (4.5-10.0)
[2020-04-25 06:05] LABS: Anion Gap 5 mmol/L (8-16); Blood Urea Nitrogen 15 mg/dL (9-20); Calcium 8.5 mg/dL (8.4-10.2); Carbon Dioxide 27 mmol/L (22-30); Chloride 106 mmol/L (98-107); Estimated CRCL calculation 96 ml/min; Estimated Glomerular Filt Rate > 60; Glucose 202 mg/dL (75-110); Magnesium 1.6 mg/dL (1.6-2.3); Potassium 3.4 mmol/L (3.4-5.0); Sodium 138 mmol/L (137-145)
[2020-04-25 07:25] LABS: Thyroid Stimulating Hormone Reflex 0.306 uIU/mL (0.465-4.68)
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
[2020-04-25] MEDS: carvediloL 6.25 MG TABLET PO (08:55)
[2020-04-25 08:56] LABS: Free T4 Free Thyroxine Reflex 0.83 ng/dL (0.78-2.19)
[2020-04-25] MEDS: ASPIRIN 81 MG CHEWABLE TABLET PO (08:56)
[2020-04-25] MEDS: INSULIN DETEMIR 100 UNITS/ML 25 UNITS SUB-Q (08:56)
[2020-04-25] MEDS: allopurinoL 100 MG TABLET PO (08:56)
[2020-04-25 08:57] LABS: Glucose Point of Care 204 (65-105)
[2020-04-25] MEDS: INSULIN ASPART (*BKC) 100 UNITS/ML SUB-Q ×2 (09:00→13:14)
--- NOTE | 2020-04-25 09:38 | PM.CNGS ---
Assessment and Plan Assessment and plan (1) Abscess: Code(s): L02.91 - Cutaneous abscess, unspecified Status: Acute Assessment and Plan: will setup for complex I and D in OR, cont abx for now (2) HIV (human immunodeficiency virus infection): Qualifiers: HIV symptom status: unspecified Qualified Code(s): B20 - Human immunodeficiency virus [HIV] disease Code(s): B20 - Human immunodeficiency virus [HIV] disease Status: Chronic Assessment and Plan: cont current treatment (3) Diabetes mellitus: Qualifiers: Diabetes mellitus type: type 2 Diabetes mellitus roasterman insulin use: with roasterman use Diabetes mellitus complication status: without complication Qualified Code(s): E11.9 - Type 2 diabetes mellitus without complications; Z79.4 - [facility] (current) use of insulin Code(s): E11.9 - Type 2 diabetes mellitus without complications Status: Chronic Assessment and Plan: cont current mgmt (4) Coronary artery disease: Code(s): I25.10 - Atherosclerotic heart disease of [place] coronary artery without angina pectoris Status: Acute Assessment and Plan: cardiology workup pending (5) Syncope and collapse: Code(s): R55 - Syncope and collapse Status: Acute Assessment and Plan: workup pending History of Present Illness Consult details Consult date: 04/25/20 Reason for consult: wound care Requesting physician: Naveen Mac MD Narrative: Pt is a 59 y/o M c multiple med issues including HIV, CAD, polysubstance abuse presenting c/o syncopal episode and CP. Pt is currently undergoing workup for that and denies any further CP at this time. Pt incidentally found to have abscess on R shoulder. Pt reports it has been there over last mo but recently much larger and painful. Pt denies any drainage at this time, reports previous abscesses but not in current location. Review of Systems Constitutional: Constitutional: Reports anorexia, Reports body ache(s), Denies chills, Reports fatigue, Denies fever(s), Reports poor appetite, Denies weight gain and Denies weight loss Eyes: Eyes: Reports no additional eye complaints ENT: Reports system reviewed and no additional complaints, except as documented Cardiovascular: Cardiovascular: Reports chest pain and Denies dyspnea on exertion Respiratory: Respiratory: Denies cough and Denies dyspnea Gastrointestinal: Gastrointestinal: Denies abdominal pain, Denies constipation, Denies diarrhea, Denies nausea and Denies vomiting Genitourinary: Genitourinary: Reports no additional male genitourinary complaints Musculoskeletal: Musculoskeletal: Reports no additional musculoskeletal complaints Integumentary/Breasts: Skin/Breast: Reports as per HPI, Reports swelling, Reports erythema and Reports skin swelling Neurologic: Reports syncope Psychiatric: Psychiatric: Reports no additional psychiatric complaints Endocrine: Endocrine: Reports no additional endocrine complaints Hematologic/Lymphatic: Hematologic/Lymphatic: Reports no additional hematologic/lymphatic complaints Allergic/Immunologic: Allergic/Immunologic: Reports no additional allergic/immunologic complaints [facility] Past Medical History Medical History (Updated 04/25/20 @ 09:54 by Renuka Daigle MD) Atrial fibrillation Coronary artery disease Diabetes mellitus HIV (human immunodeficiency virus infection) Hyperlipidemia Hypertension Rectal cancer Surgical History Surgical History History of cholecystectomy Hx of CABG Family History Family History Other Unknown family medical history Social History Social History Smoking packs per day: 0.2 Smoking cigarettes per day: 4.0 Smoking status: Current some day smoker Tobacco type: cigarettes Alcohol
--- NOTE | 2020-04-25 09:57 | PM.IMPN ---
Progress Note: A&P Additional Plan 1. syncopal episode - unclear etiology possibly due to arrhythmia as he had history of AFib and is not on any anticoagulation, no focal deficits no sign of stroke. Also by history possibly due to hypoglycemic episode, no measurement of low blood sugar as EMS found him at 190s, will continue to monitor blood sugars. -Cardiology consult -Echocardiogram, carotid duplex ordered for today -telemetry reviewed normal sinus rhythm, will likely discharge with Holter monitor especially with history of AFib 2. diabetes type 2 - possible had hypoglycemic episode after poor diet last 4 days which may have led to some + - monitoring blood sugars - continue Levemir 25 units b.i.d., sliding scale insulin, hypoglycemia protocol 3. posterior shoulder abscess - fluctuant abscess, general surgery consult for I and D in the OR - pain control [place] - Zofran for nausea - antibiotics p.o. Bactrim b.i.d. for possible MRSA coverage 4. history of AFib status post ablation - Patient states he no longer takes any blood thinners - Patient is on beta-vahid carvedilol, who says once daily at home, usually b.i.d. dosed 5. other chronic conditions - HIV: continue Genvoya, will need to bring from home - gout: continue allopurinol Diet: Cardiac DVT prophylaxis: SCDs Code status: Full code Disposition: Observation, home tomorrow Time Spent With Patient Time with patient: 15 - 25 minutes Subjective Date/time seen: 04/25/20 09:57 Patient examined bedside. Feels well. Appears he had syncopal episode he was unconscious for 10 minutes found by hotel staff. He thought it was because of his diabetes possibly hypoglycemia bottle of Pepsi. By time EMS checked his blood sugars were in the 190s. he feels good today no new complaints. He has abscess on right posterior shoulder planned for incision and drainage tomorrow in the OR. Plan for echocardiogram and ultrasound carotids today. patient has a history of AFib status post ablation 01/2019 with his open heart surgery. Telemetry reviewed normal sinus rhythm. will likely get Holter monitor or zio patch on discharge. Review of Systems Review of Systems: Narrative: Constitutional: No Fever, No Chills, No Night Sweats, No Fatigue, No Malaise ENT/Mouth: No Hearing Changes, No Ear Pain, No Nasal Congestion, No Sinus Pain, No Hoarseness, No sore throat, No Rhinorrhea, No Swallowing Difficulty Eyes: No Eye Pain, No Redness, No Vision Changes Cardiovascular: No Chest Pain, No Palpitations, No Dyspnea on Exertion, No Orthopnea, No Claudication, No Edema Respiratory: No Cough, No Sputum, No Wheezing, No Shortness of Breath Gastrointestinal: No Nausea, No Vomiting, No Diarrhea, No Constipation, No Abdominal Pain, No Heartburn, No Hematochezia, No Melena Genitourinary: No Dysuria, No Urinary Frequency, No Hematuria, No Urinary Incontinence, No Urgency Musculoskeletal: No Arthralgias, No Myalgias, No Joint Swelling, No Joint Stiffness, No Back Pain Skin: Abscess on posterior right shoulder, fluctuant, drainage of yellow serous fluid, 3 cm in diameter, tender to palpation Neuro: No Weakness, No Numbness, No Paresthesias, No Loss of Consciousness, No Syncope, No Dizziness, No Headache Psych: No Anxiety/Panic, No Depression, No Insomnia Heme: No Bruising, No Bleeding Lymph: No Adenopathy Endocrine: No Polyuria, No Polydipsia, No Temperature Intolerance Exam Narrative: Exam Narrative: - GENERAL: pleasant well-nourished gentleman in no acute distress - EYES: EOMI. Anicteric. - HENT: Moist mucous membranes. No scleral icterus. - LUNGS: Clear to auscultation bilaterally, no wheezing, rhonchi, or rales. - CARDIOVASCULAR: Regular rate and rhythm. No murmur. No JVD. - ABDOMEN: Soft, non-tender and non-distended. No palpable masses. - EXTREMITIES: No edema. Peripheral pulses 2+. Non-tender. - NEUROLOGIC: No focal neurological deficits. CN II-XII grossly intact. - PSYCHIATRIC: Awake, Alert and orien
[2020-04-25 11:21] LABS: Total Triiodothyronine (T3) 1.16 NG/ML (0.97-1.69)
[2020-04-25 12:21] LABS: Glucose Point of Care 230 (65-105)
--- NOTE | 2020-04-25 15:23 | PM.DS ---
DS: Admitting Diagnosis Admitting Diagnosis Admitting Diagnosis: syncope, chest pain DS: Discharge Diagnosis Discharge Diagnosis (1) Diabetes mellitus: Qualifiers: Diabetes mellitus complication status: without complication Diabetes mellitus nursing home insulin use: with middle or intermediate school principal use Diabetes mellitus type: type 2 Qualified Code(s): E11.9 - Type 2 diabetes mellitus without complications; Z79.4 - intermediate frame tender (current) use of insulin Code(s): E11.9 - Type 2 diabetes mellitus without complications Status: Chronic Assessment and Plan: Advised to not skip meals. (2) Hypertension: Qualifiers: Hypertension type: unspecified Qualified Code(s): I10 - Essential (primary) hypertension Code(s): I10 - Essential (primary) hypertension Status: Chronic Assessment and Plan: Take medications as prescribed (3) Polysubstance abuse: Code(s): F19.10 - Other psychoactive substance abuse, uncomplicated Status: Acute Assessment and Plan: Advised to substance abuse cessation (4) Coronary artery disease: Code(s): I25.10 - Atherosclerotic heart disease of [place] coronary artery without angina pectoris Status: Acute Assessment and Plan: Need to f/u with PCP and quarry boss (5) Abscess: Code(s): L02.91 - Cutaneous abscess, unspecified Status: Acute Assessment and Plan: outpatient I&D. 5 days of Bactrim for possible MRSA cellulitis/abscess. (6) Syncope and collapse: Code(s): R55 - Syncope and collapse Status: Acute Assessment and Plan: Cardiology reviewed, believes it may be related to substance abuse. Patient to f/u with previously established quarry boss. DS: Summary Hospital Course Reason for hospitalization: Syncope Hospital Course: Patient is 59-year-old male past medical history of HIV, CAD status post CABG x3, hypertension, rectal cancer history who presents the ED with complaints of syncope. Is seen in the ED few days ago for chest pain but left AMA, he has significant history of using methamphetamine. been using methamphetamine and had inconsistent p.o. intake last 5 days. He had a syncopal episode was down on the ground for what he estimates be 10 minutes , found by a hotel staff. He thought he may have had a hypoglycemic episode and drank Pepsi. By the time EMS got his blood sugar it was 190s. Patient states he had a history of afib but was ablated 01/2019. While he was here telemetry shows normal sinus rhythm. Patient to follow-up with primary quarry boss who is in [place], [place]. For his abscess he will get 5 days of Bactrim for MRSA coverage for his abscess/cellulitis. Patient can follow up with Dr. Daigle for outpatient I&D if he would like, otherwise he will follow up with surgeon closer to home. patient understands agrees with plan. Patient's labs are stable, vitals stable, patient is asymptomatic back to baseline, patient stable for discharge. Status at Discharge Functional status at discharge: independent ambulation Overall status at discharge: patient is back to baseline Time Spent with Patient Time attestation: Total time spent providing and/or coordinating discharge services: 35 Time spent: Greater than 30 minutes Exam Narrative: Exam Narrative: - GENERAL: pleasant well-nourished gentleman in no acute distress - EYES: EOMI. Anicteric. - HENT: Moist mucous membranes. No scleral icterus. - LUNGS: Clear to auscultation bilaterally, no wheezing, rhonchi, or rales. - CARDIOVASCULAR: Regular rate and rhythm. No murmur. No JVD. - ABDOMEN: Soft, non-tender and non-distended. No palpable masses. - EXTREMITIES: No edema. Peripheral pulses 2+. Non-tender. - NEUROLOGIC: No focal neurological deficits. CN II-XII grossly intact. - PSYCHIATRIC: Awake, Alert and oriented x 3. Appropriate mood and affect. - SKIN: Warm. Fluctuant abscess right posterior shoulder 3 cm in diameter with serous drainage. Tattoos th
--- NOTE | 2020-04-25 16:58 | WPDANESEPP ---
Anes - Eval Pre Procedure Procedure: Operation Date: 04/26/20 07:30 Proposed Procedures p Incision And Drainage Right Shoulder Complex Abscess - Renuka Daigle MD Date/Time: 04/25/20 16:58 Pre Op Diagnosis: right shoulder abscess Patient Data Age: 59 Gender: M Height: 6 ft 1 in Weight: 79.5 kg Last Vital Signs Temp 97.5 F L 04/25/20 12:00 Pulse 86 04/25/20 12:04 Resp 20 04/25/20 12:00 BP 117/65 04/25/20 12:00 Pulse Ox 94 04/25/20 12:00 Allergies Allergy/AdvReac Type Severity Reaction Status Date / Time Penicillins Allergy Anaphylactic Verified 04/24/20 11:08 Shock Home Medications Medication Instructions Recorded Confirmed Type allopurinol 100 mg PO DAILY 04/19/20 04/24/20 History imipramine HCl 50 mg PO HS 04/19/20 04/24/20 History Genvoya 1 tablet PO DAILY 04/24/20 04/24/20 History Levemir FlexTouch U-100 Insuln 25 unit SUBCUT BID 04/24/20 04/24/20 History carvedilol 12.5 mg BID 04/25/20 04/25/20 History sulfamethoxazole-trimethoprim 1 tab PO Q12HR 5 Days #10 tablet 04/25/20 Rx Laboratory Tests 04/24/20 04/24/20 04/25/20 17:10 23:44 04:44 WBC 8.6 K/mm3 K/mm3 (4.5-10.0) RBC 3.64 M/mm3 L M/mm3 (4.6-6.20) Hgb 11.5 g/dL L g/dL (14.0-18.0) Hct 33.1 % L % (42.0-52.0) MCV 90.9 fl fl (80-100) MCH 31.6 pg pg (26-34) MCHC 34.7 g/dl g/dl (32-36) RDW 12.0 % % (11.5-14.5) Plt Count 241 k/mm3 k/mm3 (150-375) MPV 9.4 fl fl (7.4-10.4) Immature Gran % (Auto) 0.7 % H % (0-0.5) Neut % (Auto) 61.2 % % (45.5-73.1) Lymph % (Auto) 27.7 % % (18.3-44.2) [place] % (Auto) 8.3 % % (2.6-8.5) Eos % (Auto) 1.9 % % (0-4.4) Baso % (Auto) 0.2 % % (0.2-1.2) Lymph # (Auto) 2.39 K/mm3 K/mm3 (0.9-3.2) [place] # (Auto) 0.7 K/mm3 H K/mm3 (0.1-0.6) Eos # (Auto) 0.2 K/mm3 K/mm3 (0-0.3) Baso # (Auto) 0.0 K/mm3 K/mm3 (0.0-0.1) Abs Immat Gran (auto) 0.06 K/mm3 H K/mm3 (0.00-0.031) Absolute Neuts (auto) 5.3 K/mm3 K/mm3 (1.3-6.7) Absolute Nucleated RBC 0.0 K/mm3 K/mm3 (0.0-0.012) Nucleated RBC % 0.0 % % (0.0-0.2) Sodium Potassium Chloride Carbon Dioxide Anion Gap BUN Creatinine Estim Creat Clear Calc Estimated GFR Glucose POC Capillary Glucose 249 mg/dl H mg/dl (65-105) Calcium Magnesium Troponin I < 0.012 ng/mL ng/mL (0.000-0.034) TSH (Reflex) Free T4 Total T3 04/25/20 04/25/20 04/25/20 04:44 04:44 04:44 WBC RBC Hgb Hct MCV MCH MCHC RDW Plt Count MPV Immature Gran % (Auto) Neut % (Auto) Lymph % (Auto) [place] % (Auto) Eos % (Auto) Baso % (Auto) Lymph # (Auto) [place] # (Auto) Eos # (Auto) Baso # (Auto) Abs Immat Gran (auto) Absolute Neuts (auto) Absolute Nucleated RBC Nucleated RBC % Sodium 138 mmol/L mmol/L (137-145) Potassium 3.4 mmol/L mmol/L (3.4-5.0) Chloride 106 mmol/L mmol/L (98-107) Carbon Dioxide 27 mmol/L mmol/L (22-30) Anion Gap 5 mmol/L L mmol/L (8-16) BUN 15 mg/dL mg/dL (9-20) Creatinine 0.80 mg/dL mg/dL (0.7-1.3) Estim Creat Clear Calc 96 ml/min ml/min Estimated GFR > 60 (59 - ) Glucose 202 mg/dL H mg/dL (75-110) POC Capillary Glucose Calcium 8.5 mg/dL mg/dL (8.4-10.2) Magnesium 1.6
== END 2020-04-25 16:34 | disposition home or self-care (01) | DRG 312 ==
LOC: ANHED 10:23 → ANHIMU 18:24
PROVIDERS: Family Medicine; Admitting Provider Family Medicine; Emergency Provider General Practice; Visit Provider Student in an Organized Health Care Education/Training Program
DX: R55 Syncope and collapse (principal); B20 Human immunodeficiency virus [HIV] disease; L02.413 Cutaneous abscess of right upper limb; L03.113 Cellulitis of right upper limb; E11.9 Type 2 diabetes mellitus without complications; R07.9 Chest pain, unspecified; I25.10 Atherosclerotic heart disease of native coronary artery without angina pectoris; E78.5 Hyperlipidemia, unspecified; I10 Essential (primary) hypertension; R74.01 Elevation of levels of liver transaminase levels; F19.10 Other psychoactive substance abuse, uncomplicated; F17.210 Nicotine dependence, cigarettes, uncomplicated; M10.9 Gout, unspecified; Z79.4 Long term (current) use of insulin; Z79.899 Other long term (current) drug therapy; Z85.048 Personal history of other malignant neoplasm of rectum, rectosigmoid junction, and anus; Z86.79 Personal history of other diseases of the circulatory system; Z88.0 Allergy status to penicillin; Z95.1 Presence of aortocoronary bypass graft; Z95.5 Presence of coronary angioplasty implant and graft
CPT/HCPCS: 36415; 70450; 71045; 71275; 80048; 80053; 80307; 81001; 82948; 83735; 83880; 84439; 84443; 84480; 84484; 85025; 85380; 85610; 85730; 93005; 93306; 93880; 96360; 96361; 99285; A9270; G0378; J1815; J7030; Q9957; Q9967